=== PATIENT | female | born 1960 | race Caucasian/White ===

== ENCOUNTER → 2017-01-07 | Outpatient (CLI) | payer OTHER ==
--- NOTE | ~2017-01-07 | BD1 ---
[facility] A Service of [facility] RADIOLOGY TEXT RESULTS PATIENT: FAVIOLA LEE LOCATION: [facility] : 58 UNIT #: [id number] AGE: [address]: MARCOS MANZO MD SEX: F ORDER DR: [id number] [facility]. [place], [place] [address] [id number] MR#: [id number] Acc #: [id number] NAME: FAVIOLA LEE : 1960 SEX: F STUDY DATE/TIME: 01/07/2017 9:36 UNIT: [facility] ROOM: STUDY DESCRIPTION: BD Dexa Bone Dens 1+ Site Attending Physician: Marcos Manzo M.D. Referring Physician: Marcos Manzo M.D. Ordering Physician: Marcos Manzo M.D. Primary Care Physician: Marcos Manzo M.D. MEDICAL IMAGING REPORT This report is preliminary unless electronic signature is present EXAM DXA scan, 01/07/2017. HISTORY Status post menopause with history of hormone replacement therapy. Osteopenia. Arthritis and diabetes. Thyroid medication Synthroid use since age 12. Family history of osteoporosis in sister and mother. FINDINGS Bone mineral density in the lumbar spine from L1-L4 is 0.988 g/cm2 which is 0.5 standard deviations below the mean when compared to the young adult reference population which is within the range of normal. This is 0.7 standard deviations above the mean when compared to the age-matched population. Bone mineral density in the left femoral neck was 0.755 g/cm2 which is 0.8 standard deviations below the mean when compared to the young adult reference population which is within the range of normal. This is 0.3 standard deviations above the mean when compared to the age-matched population. IMPRESSION Bone mineral density in the lumbar spine and left hip within the range of normal. Dictated by... Ander Bernard M.D. THIS IS AN ELECTRONICALLY VERIFIED REPORT Ander Bernard M.D. at 01/08/2017 8:00 AM MALKA/tmw [facility]. [facility] A Service of [facility] / [facility] RADIOLOGY TEXT RESULTS PATIENT: FAVIOLA LEE LOCATION: [facility] #: [id number] : [birth year] UNIT #: [id number] AGE: [address]: MARCOS MANZO MD SEX: F ORDER DR: TD: 01/07/2017 12:56 JOB #: [id number] MEDICAL IMAGING REPORT COPY
== END | disposition home or self-care (01) ==
LOC: CWCC 09:15
DX: Z13.820 Encounter for screening for osteoporosis (principal)
CPT/HCPCS: 77080